=== PATIENT | female | born 1990 | race Caucasian/White ===

== ENCOUNTER 2016-12-10 21:29 | Emergency (ER) | payer SELFPAY ==
[2016-12-10 21:37] VITALS: BP 107/66
--- NOTE | 2016-12-10 22:18 | Emergency Department Report ---
Chief Complaint: Abdominal Pain Stated Complaint: ABDOMINAL PAIN Time Seen by Provider: 12/10/16 22:14 - HPI History of Present Illness: patient c/o lower abdominal pain that started this morning; denies N/V/D, dysuria, hematuria, vaginal bleeding and discharge; LMP - middle of August, hasn't received care yet but had a normal US on November 05 and she was told she was 12 weeks at the time - ROS Review of Systems: Negative except for those stated in HPI - Exam Vital Signs: Vital Signs 12/10/16 12/10/16 21:36 21:45 Temperature 98.5 F 98.5 F Pulse Rate 72 72 Respiratory 18 18 Rate Blood Pressure 107/66 Blood Pressure 107/66 [Right] O2 Sat by Pulse 100 100 Oximetry Physical Exam: Abdomen - mild TTP over lower abdomen MSE screening note: Focused history and physical exam performed. Due to findings the following was ordered: Labs, patient to be seen in Main ED ED Disposition for MSE Condition: Stable Instructions: Abdominal Pain (ED)
[2016-12-10 23:18] LABS: Basophils % (Auto) 0.3 % (0.0-1.8); Eosinophils % (Auto) 0.7 % (0.0-4.3); Hematocrit 38.3 % (30.3-42.9); Hemoglobin 12.8 gm/dl (10.1-14.3); Mean Corpuscular HGB Conc 34 % (30-34); Mean Corpuscular Hemoglobin 30 pg (28-32); Mean Corpuscular Volume 90 fl (79-97); Platelet Count 290 K/mm3 (140-440); Red Blood Count 4.28 M/mm3 (3.65-5.03); White Blood Count 7.4 K/mm3 (4.5-11.0)
[2016-12-10 23:34] LABS: Alanine Aminotransferase 7 units/L (7-56); Albumin 3.7 g/dL (3.9-5); Albumin/Globulin Ratio 1.3 %; Alkaline Phosphatase 43 units/L (35-129); Anion Gap 15 mmol/L; Bilirubin,Total 0.4 mg/dL (0.1-1.2); Blood Urea Nitrogen 8 mg/dL (7-17); Calcium 8.8 mg/dL (8.4-10.2); Carbon Dioxide 26 mmol/L (22-30); Chloride 96.1 mmol/L (98-107); Glucose 80 mg/dL (65-100); Lipase 37 units/L (13-60); Potassium 3.6 mmol/L (3.6-5.0); Sodium 133 mmol/L (137-145); Total Protein 6.6 g/dL (6.3-8.2)
[2016-12-10 23:53] LABS: Bilirubin,Urine NEG (Negative); Blood,Urine NEG (Negative); Ketones,Urine TR mg/dL (Negative); Leukocyte Esterase,Urine TR (Negative); Mucus,Urine 2+ /HPF; Nitrite,Urine NEG (Negative); Protein,Urine <15 mg/dL mg/dL (Negative); Urobilinogen,Urine < 2.0 mg/dL (<2.0)
--- NOTE | 2016-12-17 17:11 | ED Elopement Review ---
ED Pt Elopement review - Results review Lab results: Laboratory Tests 12/10/16 12/10/16 12/10/16 22:58 22:58 22:58 WBC 7.4 RBC 4.28 Hgb 12.8 Hct 38.3 MCV 90 MCH 30 MCHC 34 RDW 13.0 L Plt Count 290 Lymph % (Auto) 31.3 [place] % (Auto) 8.4 H Eos % (Auto) 0.7 Baso % (Auto) 0.3 Lymph # 2.3 [place] # 0.6 Eos # 0.1 Baso # 0.0 Seg Neutrophils % 59.3 Seg Neutrophils # 4.4 Sodium 133 L Potassium 3.6 Chloride 96.1 L Carbon Dioxide 26 Anion Gap 15 BUN 8 Creatinine 0.4 L Estimated GFR > 60 BUN/Creatinine Ratio 20.00 Glucose 80 Calcium 8.8 Total Bilirubin 0.4 AST 15 ALT 7 Alkaline Phosphatase 43 Total Protein 6.6 Albumin 3.7 L Albumin/Globulin Ratio 1.3 Lipase 37 HCG, Quant 02859 H Urine Color Urine Turbidity Urine pH Ur Specific [place] Urine Protein Urine Glucose (UA) Urine Ketones Urine Blood Urine Nitrite Urine Bilirubin Urine Urobilinogen Ur Leukocyte Esterase Urine WBC (Auto) Urine RBC (Auto) U Epithel Cells (Auto) Urine Mucus 12/10/16 Unknown WBC RBC Hgb Hct MCV MCH MCHC RDW Plt Count Lymph % (Auto) [place] % (Auto) Eos % (Auto) Baso % (Auto) Lymph # [place] # Eos # Baso # Seg Neutrophils % Seg Neutrophils # Sodium Potassium Chloride Carbon Dioxide Anion Gap BUN Creatinine Estimated GFR BUN/Creatinine Ratio Glucose Calcium Total Bilirubin AST ALT Alkaline Phosphatase Total Protein Albumin Albumin/Globulin Ratio Lipase HCG, Quant Urine Color Yellow Urine Turbidity Clear Urine pH 6.0 Ur Specific [place] 1.021 Urine Protein <15 mg/dl Urine Glucose (UA) Neg Urine Ketones Tr Urine Blood Neg Urine Nitrite Neg Urine Bilirubin Neg Urine Urobilinogen < 2.0 Ur Leukocyte Esterase Tr Urine WBC (Auto) 4.0 Urine RBC (Auto) 1.0 U Epithel Cells (Auto) 2.0 Urine Mucus 2+ - Call Back decision Pt Call Back Decision: No action required
== END 2016-12-11 02:01 | disposition left against medical advice (07) ==
LOC: ED 21:29
DX: R10.30 Lower abdominal pain, unspecified (principal); Z53.21 Procedure and treatment not carried out due to patient leaving prior to being seen by health care provider
CPT/HCPCS: 36415; 80053; 81001; 83690; 84702; 85025

== ENCOUNTER 2017-05-29 08:08 | Inpatient (IN) | payer OTHER ==
[2017-05-29] MEDS ORDERED: VISTARIL PO ONE (13:30)
[2017-05-29] MEDS: LACTATED RINGERS 1,000 ML IV SCH ×3 (13:43→16:50)
[2017-05-29] MEDS ORDERED: ePHEDrine SULFATE IV PRN ×2 (14:34→16:18)
[2017-05-29] MEDS ORDERED: STADOL IV PRN (14:34)
[2017-05-29] MEDS ORDERED: MINERAL OIL PO PRN (14:34)
[2017-05-29] MEDS ORDERED: SUBLIMAZE IV PRN (14:34)
[2017-05-29] MEDS ORDERED: ZOFRAN IV PRN ×2 (14:34→20:00)
--- NOTE | 2017-05-29 14:47 | History and Physical Report ---
History of Present Illness Date of examination: 05/29/17 Chief complaint: Labor History of present illness: Pt is a 26yo BF EDC 06/01/17; EGA 39 4/7 weeks presents to L&D complaining or RUC's q 4-5 mins. She received care at [facility] since 20 weeks and course uncomplicated except for a previous C Section. She desires a TOLAC. records are available, and GBS is negative. Past History Past Medical History: no pertinent history Past Surgical History: section Family/Genetic History: none Social history: no significant social history, - Obstetrical History Expected Date of Delivery: 06/01/17 Actual Gestation: 39 Week(s) 4 Day(s) : 2 Para: 1 Medications and Allergies Allergies Allergy/AdvReac Type Severity Reaction Status Date / Time codeine Allergy Itching Verified 12/10/16 21:50 Active Meds: Active Medications Butorphanol Tartrate (Stadol) 2 mg IV Q2H PRN PRN Reason: Pain , Severe (7-10) Ephedrine Sulfate (Ephedrine Sulfate) 10 mg IV Q2M PRN PRN Reason: Hypotension Stop: 05/29/17 14:39 Fentanyl (Sublimaze) 100 mcg IV Q2H PRN PRN Reason: Labor Pain Lactated Ringer's (Lactated Ringers) 1,000 mls @ 125 mls/hr IV DIRECT JOVITA Last Admin: 05/29/17 14:24 Dose: 125 mls/hr Lactated Ringer's (Lactated Ringers) 1,000 mls @ 125 mls/hr IV DIRECT JOVITA Oxytocin/Sodium Chloride (Pitocin/Ns 20 Unit/1000ml Drip) 20 units in 1,000 mls @ 125 mls/hr IV DIRECT JOVITA Oxytocin/Sodium Chloride (Pitocin/Ns 30 Unit/500ml) 30 units in 500 mls @ 1 mls /hr IV TITR JOVITA; 1 MILLIUNITS/MIN PRN Reason: Protocol Lidocaine (Xylocaine 2%) 20 ml INFILTRATI ONCE ONE Stop: 05/29/17 14:35 Mineral Oil (Mineral Oil) 30 ml PO QHS PRN PRN Reason: Constipation Ondansetron HCl (Zofran) 4 mg IV Q8H PRN PRN Reason: Nausea And Vomiting Terbutaline Sulfate (Brethine) 0.25 mg SUB-Q ONCE PRN PRN Reason: Hyperstimulation/Hypertonicity Stop: 05/29/17 14:35 Terbutaline Sulfate (Brethine) 0.25 mg IVP ONCE PRN PRN Reason: Hyperstimulation/Hypertonicity Stop: 05/29/17 14:35 Review of Systems All systems: negative - Vital Signs Vital signs: Vital Signs Pulse BP 83 112/72 05/29/17 08:28 05/29/17 08:28 Temp Pulse Resp BP Pulse Ox 98.1 F 79 16 112/72 80 L 05/29/17 09:24 05/29/17 13:20 05/29/17 09:24 05/29/17 09:24 05/29/17 13:20 - Physical Exam Breasts: Positive: deferred Cardiovascular: Regular rate Lungs: Positive: Clear to auscultation Abdomen: Positive: normal appearance, soft Genitourinary (Female): Positive: normal external genitalia Vagina: Positive: normal moisture Uterus: Positive: enlarged Extremities: Positive: normal - Obstetrical FHR: category 1 Uterine Contraction Monitor Mode: External Cervical Dilatation: 3 Cervical Effacement Percentage: 70 station: -2 Uterine Contraction Pattern: Regular Uterine Tone Measurement Phase: Contraction Uterine Contraction Intensity: Moderate Results Result Diagrams: 05/29/17 15:20 All other labs normal. Assessment and Plan - Patient Problems (1) 39 weeks gestation of Onset Date: 05/29/17 Current Visit: Yes Status: Acute Plan to address problem: A: IUP @ 39 4/7 weeks in labor Previous C Section - desires TOLAC GBS Negative P: Admit to L&D for expectant vaginal delivery () (2) Previous delivery affecting Onset Date: 05/29/17 Current Visit: Yes Status: Acute
[2017-05-29] MEDS ORDERED: BRETHINE SUB-Q PRN (14:51)
[2017-05-29] MEDS ORDERED: BRETHINE IVP PRN (14:52)
[2017-05-29] MEDS ORDERED: XYLOCAINE 2% INFILTRATI ONE (15:00)
[2017-05-29] MEDS ORDERED: PITOCin/NS 20 UNIT/1000ML DRIP 20 UNITS/1,000 ML BAG IV SCH ×2 (15:00→20:00)
[2017-05-29] MEDS ORDERED: LACTATED RINGERS 1,000 ML IV SCH (15:00)
[2017-05-29 15:41] LABS: Hematocrit 32.9 % (30.3-42.9); Hemoglobin 11.2 gm/dl (10.1-14.3); Mean Corpuscular HGB Conc 34 % (30-34); Mean Corpuscular Hemoglobin 29 pg (28-32); Mean Corpuscular Volume 85 fl (79-97); Platelet Count 260 K/mm3 (140-440); Red Cell Distribution Width 13.6 % (13.2-15.2); White Blood Count 13.5 K/mm3 (4.5-11.0)
[2017-05-29] MEDS ORDERED: NARCAN 2 MG/2 ML IV PRN (16:18)
--- NOTE | 2017-05-29 16:18 | Anesthesia Consultation ---
Anesthesia Consult and Med Hx Date of service: 05/29/17 - Airway Anesthetic Teeth Evaluation: Good ROM Head & Neck: Adequate Mental/Hyoid Distance: Adequate Mallampati Class: Class II Intubation Access Assessment: Probably Good - Pre-Operative Health Status ASA Pre-Surgery Classification: ASA2 Proposed Anesthetic Plan: Epidural, Spinal - Pulmonary Hx Asthma: No COPD: No Hx Pneumonia: No - Cardiovascular System Hx Hypertension: No - Central Nervous System Hx Seizures: No Hx Psychiatric Problems: No - Endocrine Hx Renal Disease: No Hx End Stage Renal Disease: No Hx Hypothyroidism: No Hx Hyperthyroidism: No - Hematic Hx Anemia: No Hx Sickle Cell Disease: No - Other Systems Hx Alcohol Use: No
[2017-05-29] MEDS: fentaNYL-BUPIV 2 MCG/ML-0.125% 200 MCG/100 ML BAG EPIDURAL SCH ×2 (17:37→18:00)
[2017-05-29] MEDS: PITOCin/NS 30 UNIT/500ML 30 UNITS/500 ML BAG IV SCH ×2 (17:42→18:37)
--- NOTE | 2017-05-29 19:59 | Procedure Note ---
OB Delivery Note - Delivery Date of Delivery: 05/29/17 Surgeon: ISIS MCNEIL Estimated blood loss: 200cc - Vaginal Delivery presentation: vertex Delivery position: OA Intrapartum events: mult.variable deceleratio Delivery induction: none Delivery augmentation: rupture of membranes Delivery monitor: external FHT, external uterine Route of delivery: vacuum extraction (3 pulls, no pop-offs) Indicators for instrumentation: nonreassuring FHR tracing Delivery placenta: spontaneous Delivery cord: nuchal cord (x1), other (body cord x 1) Episiotomy: none Delivery laceration: 2nd degree (perineal) Delivery repair: vicryl Anesthesia: epidural Delivery comments: Infant delivered OA after 3 pulls with the vacuum and no pop-offs. Nuchal cord x 1, and body cord x 1 reduced and infant placed on mom's chest for skin-to- skin bonding and delayed cord clamping. Uterine scar intact. Peds/RT in attendance. - Infant A at 1 minute: 8 at 5 minutes: 9 Infant Gender: Male (3240gms)
[2017-05-29] MEDS ORDERED: SODIUM CHLORIDE FLUSH SYRINGE 10 ML IV NR (20:00)
[2017-05-29] MEDS ORDERED: MILK OF MAGNESIA PO PRN (20:00)
[2017-05-29] MEDS ORDERED: TYLENOL PO PRN (20:00)
[2017-05-29] MEDS ORDERED: DULCOLAX PR PRN (20:00)
[2017-05-29] MEDS ORDERED: BENADRYL PO PRN (20:00)
[2017-05-29] MEDS ORDERED: PHENERGAN PR PRN (20:00)
[2017-05-29] MEDS ORDERED: LANSINOH TP PRN (20:00)
[2017-05-29] MEDS ORDERED: TUCKS PAD TP PRN (20:00)
[2017-05-29] MEDS ORDERED: PHENERGAN PO PRN (20:00)
[2017-05-29] MEDS: MOTRIN PO SCH (21:01)
[2017-05-29] MEDS: NORCO 5/325 PO PRN (23:51)
[2017-05-29] MEDS: FEOSOL PO SCH (23:51)
[2017-05-29] MEDS: COLACE PO SCH (23:52)
[2017-05-30] MEDS: MOTRIN PO SCH ×3 (02:33→21:50)
[2017-05-30] MEDS: NORCO 5/325 PO PRN ×2 (06:21→18:52)
[2017-05-30] MEDS ORDERED: BOOSTRIX IM ONE ×2 (06:30→20:00)
[2017-05-30] MEDS ORDERED: DERMOPLAST TP PRN (06:42)
[2017-05-30 09:05] LABS: Hematocrit 29.7 % (30.3-42.9); Hemoglobin 9.8 gm/dl (10.1-14.3)
--- NOTE | 2017-05-30 09:37 | Progress Note ---
Assessment and Plan - Patient Problems (1) 39 weeks gestation of Onset Date: 05/29/17 Current Visit: Yes Status: Resolved (2) Previous delivery affecting Onset Date: 05/29/17 Current Visit: Yes Status: Resolved (3) (normal spontaneous vaginal delivery) Onset Date: 05/30/17 Current Visit: Yes Status: Resolved Plan to address problem: A: S/P () - PPD #1 Doing well P: May go home in am Subjective - Subjective Date of service: 05/30/17 Principal diagnosis: s/p () - PPD #1 Interval history: Pt is feeling well without complaints. Bleeding improved. Patient reports: appetite normal, voiding normally, pain well controlled, flatus , ambulating normally : doing well, nursing well Objective - Vital Signs Latest vital signs: Vital Signs Temp Pulse Pulse Resp BP BP Pulse Ox 05/30/17 08:29 97.9 F 93 H 18 101/48 05/30/17 06:21 18 05/30/17 04:35 98.2 F 100 H 18 113/53 05/30/17 00:55 98.3 F 106 H 18 114/58 05/29/17 21:15 86 96/52 05/29/17 21:00 97 H 105/55 05/29/17 20:45 104 H 102/50 05/29/17 20:30 105 H 111/54 05/29/17 20:15 92 H 115/54 05/29/17 20:00 110 H 106/56 05/29/17 19:45 103 H 106/55 05/29/17 19:32 87 115/57 99 05/29/17 19:27 86 100 05/29/17 19:22 77 100 05/29/17 19:17 68 100 05/29/17 19:16 78 106/59 05/29/17 19:12 99 H 100 05/29/17 19:08 64 97/54 05/29/17 19:07 98.0 F 71 65 20 97/54 100 05/29/17 19:02 74 100 05/29/17 18:57 73 100 05/29/17 18:52 75 100 05/29/17 18:47 67 100 05/29/17 18:45 68 103/55 05/29/17 18:42 75 100 07/19/17 18:37 86 98 0719/17 18:32 86 99 19/17 18:30 83 107/56 19/17 18:27 83 99 05/29/17 18:22 93 H 100 19/17 18:17 67 100 05/29/17 18:16 63 106/59 19/17 18:12 98 H 100 1917 18:07 66 100 1917 18:02 79 98 1917 18:01 67 109/65 19/17 17:57 72 97 19/17 17:52 94 H 97 1917 17:47 99 H 98 17 17:46 68 132/70 1917 17:42 90 97 1917 17:37 76 97 1917 17:32 73 96 17 17:30 64 134/80 19/17 17:27 70 98 17 17:22 82 96 17 17:17 79 96 17 17:13 87 127/68 17 17:12 86 95 1917 17:07 80 96 1917 17:02 79 96 1917 16:59 71 110/51 05/29/17 16:57 76 97 17 16:52 81 96 1917 16:47 95 H 97 1917 16:42 84 109/54 96 1917 16:40 94 H 107/58 19/17 16:38 90 111/63 19/17 16:36 76 103/63 19/17 16:35 71 103/56 19/17 16:34 77 108/54 19/17 16:32 90 118/56 19/17 16:31 71 97 19/17 16:30 88 109/55 19/17 16:28 96 H 121/57 0719/17 16:26 93 H 122/56 97 19/17 16:24 107 H 121/58 19/17 16:22 96 H 130/58 19/17 16:21 89 97 1917 16:02 93 H 119/66 07/19/17 15:47 85 116/71 05/29/17 15:32 86 121/73 05/29/17 15:02 71 117/72 05/29/17 13:20 79 80 L 05/29/17 13:18 79 94 05/29/17 13:17 86 93 05/29/17 13:13 72 99 05/29/17 13:12 70 92 05/29/17 13:09 72 99 05/29/17 13:04 72 97 05/29/17 12:59 62 98 05/29/17 12:54 73 99 05/29/17 12:53 62 97 05/29/17 12:48 64 99 05/29/17 12:43 84 77 L 05/29/17 12:42 242 H 99 05/29/17 12:40 163 H 82 L 05/29/17 12:39 257 H 80 L 05/29/17 11:03 61 98 05/29/17 10:58 60 96 05/29/17 10:53 60 98 05/29/17 10:48 67 97 05/29/17 10:42 64 96 05/29/17 10:37 66 98 05/29/17 10:32 66 98 05/29/17 10:31 65 97 05/29/17 10:26 74 97 05/29/17 10:21 76 97 05/29/17 10:16 68 99 05/29/17 10:15 84 97 05/29/17 10:10 67 96 05/29/17 10:05 62 97 05/29/17 10:00 77 96 05/29/17 09:55 69 97 05/29/17 09:54 67 98 05/29/17 09:53 82 97 05/29/17 09:50 80 96 05/29/17 09:45 79 96 05/29/17 09:39 63 97 Intake and Output 05/29/17 05/30/17 05/30/17 22:59 06:59 14:59 Intake Total 1999 480 Output Total 900 1300 Balance 1100 -820 Intake: IV 2000 Lactated Ringers 1,000 ml 1000 @ 125 mls/hr IV DIRECT JOVITA Rx#:[id number] Lactated Ringers 1,000 ml 1000 @ 125 mls/hr IV DIRECT JOVITA Rx#:[id number] Oral 480 Output: Urine 900 1300 Indwelling Catheter 900 Void 1300 Other: Total, Intake Amount 240 Total, Output Amount 900 400 # Voids Void 1 Estimated Blood Loss 200 - Exam Breasts: Present: deferred Cardiovascular: Present: Regular rate Lungs: Present: Clear to auscultation Abdomen: Present: normal appearance, soft Uterus: Present: normal, firm, fundal height below umbilicus Extremities: Present: normal - Labs Labs: Abnormal lab results 05/29/17 05/30/17 Range/Units 15:20 08:20 WBC 13.5 H (4.5-11.0) K/mm3 Hgb 9.8 L (10.1-14.3) gm/dl Hct 29.7 L (30.3-42.9) % Laboratory Tests 05/29/17 05/29/17 05/30/17 15:20 15:20 08:20 WBC 13.5 H RBC 3.90 Hgb 11.2 9.8 L Hct 32.9 29.7 L MCV 85 MCH 29 MCHC 34 RDW 13.6 Plt Count 260 Blood Type B POSITIVE Antibody Screen TNR NED Antibody Screen Negative
--- NOTE | 2017-05-30 10:48 | Progress Note ---
Subjective Date of service: 05/30/17 Principal diagnosis: s/p () - PPD #1 Interval history: 1st day after normal vaginal delivery Patient is in the bed, comfortable. Pain is well controlled with pain meds. Ambulated well. No residual neurological deficit. No anesthesia complications Objective - Constitutional Vitals: Vital Signs - 12hr 05/30/17 05/30/17 05/30/17 00:55 04:35 06:21 Temperature 98.3 F 98.2 F Pulse Rate [ 106 H 100 H Right From Monitor] Respiratory 18 18 18 Rate Blood Pressure 114/58 113/53 [Left Arm] 05/30/17 08:29 Temperature 97.9 F Pulse Rate [ 93 H Right From Monitor] Respiratory 18 Rate Blood Pressure 101/48 [Left Arm] - Labs CBC & Chem 7: 05/30/17 08:20 Labs: Abnormal lab results 05/29/17 05/30/17 Range/Units 15:20 08:20 WBC 13.5 H (4.5-11.0) K/mm3 Hgb 9.8 L (10.1-14.3) gm/dl Hct 29.7 L (30.3-42.9) %
[2017-05-30] MEDS: FEOSOL PO SCH ×2 (12:15→21:50)
[2017-05-30] MEDS: COLACE PO SCH ×2 (12:15→21:50)
[2017-05-30] MEDS: PRENATAL VITAMIN PO SCH (12:15)
--- NOTE | 2017-05-30 12:34 | Discharge Summary ---
Providers - Providers Date of Admission: 05/29/17 15:12 Date of discharge: 05/31/17 Attending physician: ISIS MCNEIL Primary care physician: HUMAN SERVICES MANAGER Hospitalization Reason for admission: active labor, IUP at term Delivery: Episiotomy: none Laceration: 2nd degree (perineal) Other procedures: none complications: none Discharge diagnosis: IUP at term delivered baby: male Hospital course: Unremarkable. Condition at discharge: Good Disposition: DC-01 TO HOME OR SELFCARE - Discharge Diagnoses (1) 39 weeks gestation of Status: Resolved (2) Previous delivery affecting Status: Resolved (3) (normal spontaneous vaginal delivery) Status: Resolved Plan - Discharge Medications Prescriptions: Ferrous Sulfate [Feosol 325 MG tab] 325 mg PO BID #60 tablet HYDROcodone/APAP 5-325 [[place] 5-325 mg TAB] 1 each PO Q6H PRN #10 tablet PRN Reason: Pain, Moderate (4-6) Ibuprofen [Motrin 600 MG tab] 600 mg PO Q6H #30 tablet Vit-Fe Fumar-FA [ Vitamin] 1 each PO QDAY #30 tablet - Provider Discharge Summary Activity: routine, no sex for 6 weeks, no heavy lifting 4 weeks, no strenuous exercise Diet: routine Instructions: routine Additional instructions: [] Smoking cessation referral if applicable(refer to patient education folder for contact #) [] Refer to [facility]'s [facility] Booklet Call your doctor immediately for: * Fever > 100.5 * Heavy vaginal bleeding ( >1 pad per hour) * Severe persistent headache * Shortness of breath * Reddened, hot, painful area to leg or breast * Drainage or odor from incision. * Keep incision clean and dry at all times and follow doctor's instructions regarding bathing/showering - Follow up plan Follow up: PRIMARY CAREMD [Primary Care Provider] - 7 Days ISIS MCNEIL MD [Staff Physician] - 6 Weeks
[2017-05-30] MEDS ORDERED: M-M-R II VACCINE SUB-Q ONE (20:00)
[2017-05-31] MEDS: MOTRIN PO SCH ×2 (04:24→10:44)
[2017-05-31] MEDS ORDERED: BOOSTRIX IM ONE (06:00)
[2017-05-31] MEDS: NORCO 5/325 PO PRN (08:41)
[2017-05-31] MEDS: PRENATAL VITAMIN PO SCH (10:44)
[2017-05-31] MEDS: FEOSOL PO SCH (10:44)
[2017-05-31] MEDS: COLACE PO SCH (10:44)
[2017-05-31 11:39] VITALS: BP 98/52
== END 2017-05-31 12:40 | disposition home or self-care (01) | DRG 775 ==
LOC: TRG 08:08 → LD 15:12 → OB 22:30
PROVIDERS: ADMIT Obstetrics & Gynecology; ATTEND Obstetrics & Gynecology
PROC: 10D07Z6 Extraction of Products of Conception, Vacuum, Via Natural or Artificial Opening (ICD-10-PCS; principal; 2017-05-29)
PROC: 0KQM0ZZ Repair Perineum Muscle, Open Approach (ICD-10-PCS; 2017-05-29)
PROC: 00HU33Z Insertion of Infusion Device into Spinal Canal, Percutaneous Approach (ICD-10-PCS; 2017-05-29)
PROC: 3E0S3CZ (ICD-10-PCS; 2017-05-29)
DX: O76 Abnormality in fetal heart rate and rhythm complicating labor and delivery (principal); O34.219 Maternal care for unspecified type scar from previous cesarean delivery; Z3A.39 39 weeks gestation of pregnancy; Z37.0 Single live birth; O69.81X0 Labor and delivery complicated by cord around neck, without compression, not applicable or unspecified; Z88.5 Allergy status to narcotic agent; O70.1 Second degree perineal laceration during delivery
CPT/HCPCS: 36415; 85014; 85018; 85027; 86592; 86850; 86900; 86901; 90471; 90715; 99211; G0463; J0595; J2590; J7120; Q0177